=== PATIENT | female | born 1930 | race Caucasian/White ===

== ENCOUNTER 2019-05-18 12:19 | Emergency (ER) | payer OTHER ==
[~2019-05-18] VITALS: Ht 165.1 cm; Wt 76.6 kg
[2019-05-18] MEDS ORDERED: IOVERSOL 350 MG/ML 100 ML VIAL ONE (12:37)
[2019-05-18] MEDS ORDERED: GABA-531 PO (12:50)
[2019-05-18] MEDS ORDERED: TEMA15CA PO (12:50)
[2019-05-18] MEDS ORDERED: PRED1 PO (12:50)
[2019-05-18 12:51] LABS: BASOPHILS % (AUTO) 0.7 % (0.0-2.0); EOSINOPHILS % (AUTO) 3.6 % (1.0-6.0); HEMATOCRIT 38.4 % (36-46); HEMOGLOBIN 12.7 g/dL (12.0-16.0); LYMPHOCYTES % (AUTO) 9.8 % (22.0-44.0); MEAN CORPUSCULAR HEMOGLOBIN 28.2 pg (26.0-34.0); MEAN CORPUSCULAR HGB CONC 33.1 G/dL (31.0-37.0); MEAN CORPUSCULAR VOLUME 85 fL (80-100); MONOCYTES # (AUTO) 1.7 K/uL (0.1-1.0); MONOCYTES % (AUTO) 15.9 % (2.0-9.0); NEUTROPHILS # (AUTO) 7.4 K/uL (1.8-7.7); PLATELET COUNT (AUTO) 123 K/uL (150-450); RED CELL DISTRIBUTION WIDTH 13.9 % (11.5-14.5)
[2019-05-18 12:59] LABS: ANION GAP 8 mmol/L (8-16); CALCIUM, TOTAL 9.2 mg/dL (8.8-10.5); CARBON DIOXIDE 29 mmol/L (22-29); CHLORIDE 100 mmol/L (98-107); CREATININE 0.64 mg/dL (0.60-1.30); GLOMERULAR FILTR. RATE CALC > 60 mL/min (>60); GLUCOSE,RANDOM 159 mg/dL (70-110); POTASSIUM 4.2 mmol/L (3.5-5.1); SODIUM SERUM 137 mmol/L (136-145); UREA NITROGEN, BLOOD 13 mg/dL (7-18)
[2019-05-18 13:02] LABS: INR 1.3 (0.9-1.1); PROTHROMBIN TIME 12.7 SEC (9.4-11.6)
[2019-05-18 13:04] LABS: ALANINE AMINOTRANSFERASE 24 U/L (12-78); ALBUMIN 2.9 g/dL (3.4-5.0); ALKALINE PHOSPHATASE 104 U/L (46-116); ASPARTATE AMINOTRANSFERASE 15 U/L (15-37); BILIRUBIN,TOTAL 0.6 mg/dL (0.1-1.0); TOTAL PROTEIN, SERUM 6.5 g/dL (6.4-8.2)
[2019-05-18] MEDS ORDERED: ONDANSETRON HCL 4 MG/2 ML VIAL IVP PRN (13:15)
[2019-05-18] MEDS ORDERED: MAGNESIUM HYDROXIDE SUSPENSION 30 ML UDCUP PO PRN (13:15)
[2019-05-18] MEDS ORDERED: ACETAMINOPHEN 325 MG TABLET PO PRN (13:15)
[2019-05-18] MEDS ORDERED: ASPIRIN 81 MG CHEWABLE TABLET PO SCH (13:30)
[2019-05-18] MEDS ORDERED: ATORVASTATIN CALCIUM 40 MG TABLET PO SCH (13:30)
[2019-05-18] MEDS ORDERED: ASPIRIN 300 MG RECTAL SUPPOSITORY PR ONE (14:00)
[2019-05-18 14:23] LABS: CHOLESTEROL 125 mg/dL (131-200); HDL CHOLESTEROL 31 mg/dL (40-60); LDL CHOL (CALC.) 72 mg/dL (0-130); THYROID STIMULATING HORMONE 1.69 uIU/mL (0.36-3.74); TRIGLYCERIDES 108 mg/dL (15-150)
[2019-05-18 17:00] VITALS: BP 142/81
[2019-05-18] MEDS ORDERED: LORazepam 2 MG/ML VIAL IVP ONE (17:00)
[2019-05-18] MEDS ORDERED: DOCUSATE SODIUM 100 MG CAPSULE PO SCH (21:00)
== END 2019-05-18 17:06 | disposition short-term general hospital (02) ==
LOC: EMS 12:21
DX: I63.9 Cerebral infarction, unspecified (principal); K21.9 Gastro-esophageal reflux disease without esophagitis; Z88.8 Allergy status to other drugs, medicaments and biological substances
CPT/HCPCS: 36415; 70450; 70496; 71045; 80053; 80061; 82962; 84443; 84484; 85025; 85610; 85730; 86850; 86900; 86901; 93005; 93306; 93880; 96374; 97162; 99291; G0480; Q9967; 51702